=== PATIENT | male | born 1930 | race Caucasian/White ===

== ENCOUNTER 2016-12-24 22:40 | Emergency (ER) | payer OTHER, MEDICARE ==
[~2016-12-24 22:40] MED LIST: AMARYL 2 MG2 MG PO; ASPIR 8181 MG PO; CO-Q-10 100 MG-1 SGL PO; FUROSEMIDE40 MG PO; LEVEMIR FL300 UNITS/ SC; LISINOPRIL40 MG PO; NOVOLOG 10300 UNITS/ SC; OSTEO BI-FLEX 21 TAB PO; SIMVASTATIN40 MG PO; TYLENOL #31 TAB PO; VITAB121000 PO; VITAMIN D1000 IU PO
[2016-12-24 23:06] LABS: ABSOLUTE BASOPHIL COUNT 0.1 /CUMM (0.0-0.2); ABSOLUTE EOSINOPHIL COUNT 0.2 /CUMM (0.0-0.7); ABSOLUTE GRANULOCYTE CT 6.2 /CUMM (1.4-6.5); ABSOLUTE LYMPH COUNT 2.5 /CUMM (1.2-3.4); BASOPHIL % 0.5 % (0.0-2.0); EOSINOPHIL % 2.2 % (0-5); GRANULOCYTE % 62.5 % (42.2-75.2); MEAN CORPUSCULAR HGB 32.1 PG (27.0-31.0); MEAN CORPUSCULAR HGB CONC 33.3 G/DL (33.0-37.0); MEAN CORPUSCULAR VOLUME 96.3 FL (80.0-94.0); PLATELET COUNT 221 /CUMM (130-400); RBC DISTRIBUTION WIDTH 13.2 % (11.5-14.5); RED BLOOD CELL CT 4.15 /CUMM (4.70-6.10); WHITE BLOOD CELL COUNT 9.9 /CUMM (4.8-10.8)
--- NOTE | 2016-12-24 23:35 | ED GENERAL ADULT ---
History of Present Illness General Chief Complaint: General Adult Stated Complaint: RESTLESS Source: patient, family Exam Limitations: no limitations Vital Signs & Intake/Output Vital Signs & Intake/Output Vital Signs Date Time Temp Pulse Resp B/P Pulse O2 O2 Flow FiO2 Ox Delivery Rate 12/25 0351 97.7 78 20 130/66 96 12/24 2246 98.4 75 20 155/84 97 ED Intake and Output 12/25 0000 12/24 1200 Intake Total Output Total Balance Patient 190 lb Weight Reconcile Medications Aspirin (Ecotrin) 81 MG TABLET.DR 1 TAB PO DAILY HEART HEALTH (Reported) Cholecalciferol (Vitamin D3) (Unknown Strength) TABLET (Unknown Dose) PO DAILY VITAMIN D SUPPLEMET (Reported) Chondroitin Sulfate/Glucosam (Osteo Bi-Flex 200 MG-250 MG) (Unknown Strength) TAB (Unknown Dose) PO DAILY SUPPLEMENT (Reported) Coenzyme Q10/Vitamin E (Co-Q-10 100 MG-1 Iu) (Unknown Strength) SGL (Unknown Dose) PO DAILY SUPPLEMENT (Reported) Cyanocobalamin (Vitamin B-12) (Unknown Strength) TABLET (Unknown Dose) PO DAILY SUPPLEMENT (Reported) Fluticasone Propionate 50 MCG/ACTUATION SPRAY.SUSP 2 SPRAY NASB DAILY CONGESTION (Reported) Furosemide 40 MG TABLET 1 TAB PO EOD DIURETIC (Reported) Furosemide 40 MG TABLET 1 TAB PO DAILY FLUID (Reported) Glimepiride (Amaryl 2 MG) 2 MG TABLET 1 TAB PO DAILY DIABETES (Reported) Insulin Aspart, Recombinant (Novolog Flexpen) 100 UNIT/ML INSULN.PEN DIABETES ( Reported) Insulin Detemir (Levemir Flexpen) 100 UNIT/ML (3 ML) INSULN.PEN 42 U SC DAILY DIABETES (Reported) Insulin Detemir (Levemir Flextouch) 100 UNIT/ML (3 ML) INSULN.PEN 1 UNIT SC DAILY DM (Reported) Lisinopril 40 MG TABLET 1 TAB PO DAILY BP (Reported) Lisinopril 40 MG TABLET 1 TAB PO DAILY HTN (Reported) Lorazepam (Ativan) 0.5 MG TABLET 1 TAB PO BIDP PRN restlessness Omeprazole 40 MG CAPSULE.DR 1 CAP PO DAILY GERD (Reported) Simvastatin 40 MG TABLET 1 TAB PO QPM CHOLESTEROL (Reported) Simvastatin (Simvastatin*) 40 MG TABLET 1 TAB PO QPM CHOL (Reported) Tylenol With Codeine (Tylenol With Codeine #3 Tablet) 1 EACH TABLET 1 TAB PO BID PRN PAIN Triage Note: per daughter, restless can't sit still denies pain pt unable to state what is wrong. SAW PMD GIVEN FLONASE AND PRILOSEC 12/[address] SALMON Triage Nurses Notes Reviewed? yes HPI: THIS PATIENT is an 86-year-old male with past medical history including CHF, hypertension, and diabetes who presented to the emergency department today brought in by his daughter for evaluation of "being restless." This patient does not speak Russian as his primary language, so his daughter translated. She reported that over the last 2 weeks he has not been feeling well. She reported that he has been very restless and has to get up and move from room to room throughout the day. She reported that he was seen by his primary care physician recently because he felt like he was, "swallowing a lot." He has had a cold and they diagnosed him with postnasal drip. She was started on Prilosec and Flonase. The patient reported that he has had a cough productive of sputum. When he coughs he feels pain in his chest. The patient has not had any fevers or chills. The patient's daughter reported that he has been having some, "pulsing," in his rectum. She reported that he has not been having regular bowel movements as he normally does. No abdominal pain. No difficulty breathing. No vomiting. No nausea or diarrhea. (LINDA DAWSON PA-C) Allergies Coded Allergies: NO KNOWN ALLERGIES (12/25/16) (WILL HARO,ORESTES Galvan) Past History Travel History Traveled to [place] past 21 day No Medical History Any Pertinent Medical History? see below for history Neurological: NONE EENT: NONE Cardiovascular: CHF, hypertension Respiratory: obstructive sleep apnea Gastrointestinal: NONE Hepatic: NONE Renal: NONE Musculoskeletal: NONE Psychiatric: NONE Endocrine: DM Surgical History Surgical History: non-contributory Psychosocial History Who do you live with Family Services at Home None What is your primary language Citizen Of [place] Tobacco Use: Never used Family History Hx Contributory? No (LINDA DAWSON PA-C) Review of Systems Review of Systems Constitutional: Reports: see HPI. EENTM: Reports: no symptoms. Respiratory: Reports: no symptoms. Cardiovascular: Reports: see HPI. GI: Reports: no symptoms. Genitourinary: Reports: no symptoms. Musculoskeletal: Reports: no symptoms. Skin: Reports: no symptoms. Neurological/Psychological: Reports: no symptoms. All Other Systems: Reviewed and Negative (SAMIR MADISON,LINDA) Physical Exam Physical Exam General Appearance: well developed/nourished, no apparent distress, alert, awake Comments: Well-developed well-nourished person in no acute distress HEENT: Normal EENT exam head normocephalic/atraumatic, moist mucous membranes Pupils equally round and reactive to light. Pharynx normal. No swelling or edema. Neck: Supple Back: Normal inspection Cardiovascular: Regular rate and rhythm with no murmurs, rubs, or gallops. No JVD or carotid bruits appreciated Respiratory: Chest nontender. No respiratory distress. Breath sounds clear to auscultation bilaterally with no wheezes, rales, rhonchi Abdomen: Soft, nontender and nondistended Extremity: 2+ pitting edema to bilateral lower extremities with no overlying erythema, no weeping, and nontender to palpation. No calf tenderness. Edema greater on the right than the left. Normal and equal pulses. Neuro: Alert oriented x3, cranial nerves II through XII grossly intact. Skin: No appreciable rash on exposed skin, skin is warm and dry. Psych: Mood and affect is normal Core Measures ACS in differential dx? Yes CVA/TIA Diagnosis: No Severe Sepsis Present: No Septic Shock Present: No (LINDA DAWSON PA-C) Progress Differential Diagnoses I considered the following diagnoses in my evaluation of the patient: [Viral syndrome, pneumonia, PE, ACS, CHF, constipation, obstruction] Plan of Care: Orders Procedure Date/time Status TROPONIN LEVEL 12/25 254 Complete EKG 12/25 254 Active Add-on Test (ER Only) 12/24 2342 Active B-TYPE NATRIURETIC PEP (BNP) 12/24 225 Complete TROPONIN LEVEL 12/24 2246 Complete LIPASE 12/24 2246 Complete COMPREHENSIVE METABOLIC PANEL 12/24 2246 Complete CBC WITHOUT DIFFERENTIAL 12/24 2246 Complete AMYLASE 12/24 2246 Complete ACETONE 12/24 2246 Complete EKG 12/24 2246 Active Laboratory Tests 12/25/16 0251: Troponin I 0.02 12/24/16 2254: Anion Gap 9, Estimated GFR 57 L, BUN/Creatinine Ratio 18.3, Glucose 137 H, Calcium 9.3, Total Bilirubin 0.5, AST 22, ALT 30, Alkaline Phosphatase 60, Troponin I 0.02, [id number] Pept 491 H, Total Protein 6.3, Albumin 3.5, Globulin 2.8, Albumin/Globulin Ratio 1.3, Amylase 33, Lipase 122, CBC w Diff NO MAN DIFF REQ, RBC 4.15 L, MCV 96.3 H, MCH 32.1 H, RDW 13.2, MPV 7.0 L, Gran % 62.5, Lymphocytes % 25.0, Monocytes % 9.8 H, Eosinophils % 2.2, Basophils % 0.5, Absolute Granulocytes 6.2, Absolute Lymphocytes 2.5, Absolute Monocytes 1.0 H, Absolute Eosinophils 0.2, Absolute Basophils 0.1, PUBS MCHC 33.3, Acetone Level NEGATIVE Initial ED EKG: normal axis, normal intervals, normal p-waves, normal QRS complex, normal sinus rhythm, no ST T wave changes, 74 BPM Hand-Off Endorsed To: WILL HARO,ORESTES Galvan Endorsed Time: 47 Pending: labs, Xray Comments: 12/25/2016 12:46:47 AM: I was at the patient's bedside for reevaluation. The patient is requesting something to help him calm down. Awaiting x-ray of the abdomen and chest. This patient will receive a second troponin level and repeat EKG at approximately 3:00 this morning. (SAMIR MADISON,LINDA) Diagnostic Imaging: Viewed by Me: Radiology Read. Discussed w/RAD: Radiology Read. CXR Impression: PATIENT: ROLLY JOSE PRESENT AGE: 86 PATIENT ACCOUNT NO: [id number] : [birth year] LOCATION: [facility] ORDERING PHYSICIAN: LINDA DAWSON PA-C SERVICE DATE: 12/24/168086 EXAM TYPE: RAD - XRY-ABDOMEN -MULTIPLE VIEWS; XRY-CHEST XRAY, PA AND LATERAL EXAMINATION: PA and lateral chest radiograph and AP supine views of the abdomen CLINICAL INDICATION: Cough, malaise, and pulsing in the rectum COMPARISON: Chest x-ray October 10, 2016 FINDINGS: Chest: Central vascular congestion. Airspace opacities at the lung bases that may reflect atelectasis, pneumonia, or aspiration. Possible trace left pleural effusion. Central vascular congestion without overt edema. Asymmetric prominence of the right hilum is stable over multiple previous studies. There is no pneumothorax. Cardiac silhouette is enlarged and stable. There are no acute osseous findings. Abdomen: There is a nonobstructive bowel gas pattern. Moderate volume intracolonic stool with air seen to the level of the rectum. Calcifications within the pelvis most likely reflect phleboliths. Surgical clips within the right mid abdomen. There are no acute osseous findings. Osseous bridging across the upper aspect of the pubic symphysis. Leftward convex scoliotic curvature of the lumbar spine associated with degenerative disc disease and facet arthropathy. No definite free air on these supine films. IMPRESSION: - Bibasilar airspace opacities that may reflect atelectasis, pneumonia, or aspiration. Possible trace left pleural effusion. Central vascular congestion without overt edema. - No bowel obstruction. Moderate volume intracolonic stool. DICTATED BY: TYSON BARNARD MD DATE/TIME DICTATED:12/25/1649 SHAKER FLATWORK:ELBA DATE/TIME TRANSCRIBED:49 CONFIDENTIAL, DO NOT COPY WITHOUT APPROPRIATE AUTHORIZATION. < Electronically signed in Other Vendor System> SIGNED BY: TYSON BARNARD MD 12/25/1656 Prior EKG: unchanged Repeat EKG: unchanged Comments: No clinical signs of pneumonia. (WILL HARO,ORESTES Galvan) Departure Departure Disposition: HOME OR SELF CARE Condition: Stable Clinical Impression Primary Impression: Restlessness Referrals: VIKY HARO,JAI Gonzalez (PCP/Family) Additional Instructions: Please follow-up with your primary care physician as discussed. Return to the emergency department for any worsening symptoms or concerns. Departure Forms: Customer Survey General Discharge Information (SAMIR MADISON,LINDA) Departure Prescriptions: Current Visit Scripts Lorazepam (Ativan) 1 TAB PO BIDP PRN restlessness #30 TAB PA/TOP KNITTER Co-Sign Statement Statement: ED Attending supervision documentation- [x] I saw and evaluated the patient. I have also reviewed all the pertinent lab results and diagnostic results. I agree with the findings and the plan of care as documented in the PA's/TOP KNITTER's documentation. [x] I have reviewed the ED Record and agree with the PA's/TOP KNITTER's documentation. [] Additions or exceptions (if any) to the PAs/TOP KNITTER's note and plan are summarized below: [] (WILL HAROORESTES) Critical Care Note Critical Care Note Critical Care Time: non-applicable (SAMIR MADISON,LINDA)
--- NOTE | 2016-12-25 00:57 | RADIOLOGY REPORT ---
EXAMINATION: PA and lateral chest radiograph and AP supine views of the abdomen CLINICAL INDICATION: Cough, malaise, and pulsing in the rectum COMPARISON: Chest x-ray October 10, 2016 FINDINGS: Chest: Central vascular congestion. Airspace opacities at the lung bases that may reflect atelectasis, pneumonia, or aspiration. Possible trace left pleural effusion. Central vascular congestion without overt edema. Asymmetric prominence of the right hilum is stable over multiple previous studies. There is no pneumothorax. Cardiac silhouette is enlarged and stable. There are no acute osseous findings. Abdomen: There is a nonobstructive bowel gas pattern. Moderate volume intracolonic stool with air seen to the level of the rectum. Calcifications within the pelvis most likely reflect phleboliths. Surgical clips within the right mid abdomen. There are no acute osseous findings. Osseous bridging across the upper aspect of the pubic symphysis. Leftward convex scoliotic curvature of the lumbar spine associated with degenerative disc disease and facet arthropathy. No definite free air on these supine films. IMPRESSION: - Bibasilar airspace opacities that may reflect atelectasis, pneumonia, or aspiration. Possible trace left pleural effusion. Central vascular congestion without overt edema. - No bowel obstruction. Moderate volume intracolonic stool.
[2016-12-25] MEDS ORDERED: FLUTICASONE PRO16 GM NASB (03:47)
[2016-12-25] MEDS ORDERED: OMEPRAZOLE40 M1 PO (03:47)
[2016-12-25] MEDS ORDERED: LISINOPRIL40 M1 PO (03:48)
[2016-12-25] MEDS ORDERED: SIMVASTATIN40 M1 PO (03:48)
[2016-12-25] MEDS ORDERED: LEVEMIR FL100 UNIT/1 SC (03:48)
[2016-12-25] MEDS ORDERED: FUROSEMIDE40 M1 PO (03:48)
[2016-12-25 03:51] VITALS: BP 130/66
[2016-12-25] MEDS ORDERED: ATIVAN0.5 M1 PO (03:51)
== END 2016-12-25 03:59 ==
LOC: ERH 22:40
PROVIDERS: Emergency Medicine
DX: R45.1 Restlessness and agitation (principal); R05 Cough; R07.9 Chest pain, unspecified; I11.0 Hypertensive heart disease with heart failure; I50.9 Heart failure, unspecified; G47.33 Obstructive sleep apnea (adult) (pediatric)
CPT/HCPCS: 74020; 93005; 93010

== ENCOUNTER 2017-11-17 13:44 | Observation (INO) | payer OTHER, MEDICARE ==
[~2017-11-17] VITALS: Ht 157.5 cm; Wt 81.6 kg
[~2017-11-17 13:44] MED LIST changes: -AMARYL 2 MG2 MG PO; +AMARYL2 M1 PO; -ASPIR 8181 MG PO; +ASPIRIN EC81 M1 PO; +ATIVAN0.5 M1 PO; +CO Q-10100 MG PO; -CO-Q-10 100 MG-1 SGL PO; +FLUTICASONE PRO16 GM NASB; +FUROSEMIDE40 M1 PO; +KEFLEX500 M1 PO; +LEVEMIR FL100 UNIT/1 SC; +LISINOPRIL40 M1 PO; -NOVOLOG 10300 UNITS/ SC; +NOVOLOG FL100 UNIT/1 SC; +OMEPRAZOLE40 M1 PO; -OSTEO BI-FLEX 21 TAB PO; +OSTEO BI-FLEX1 EACH PO; +SIMVASTATIN40 M1 PO; -VITAB121000 PO; +VITAMIN B-121000 MC3 PO; -VITAMIN D1000 IU PO; +VITAMIN D31000 UNI2 PO
[2017-11-17 14:44] LABS: ABSOLUTE BASOPHIL COUNT 0 /CUMM (0.0-0.2); ABSOLUTE EOSINOPHIL COUNT 0.3 /CUMM (0.0-0.7); ABSOLUTE GRANULOCYTE CT 6.9 /CUMM (1.4-6.5); ABSOLUTE LYMPH COUNT 2.1 /CUMM (1.2-3.4); ABSOLUTE MONOCYTE COUNT 1.1 /CUMM (0.10-0.60); BASOPHIL % 0.4 % (0.0-2.0); EOSINOPHIL % 2.5 % (0-5); GRANULOCYTE % 65.9 % (42.2-75.2); MEAN CORPUSCULAR HGB 32.4 PG (27.0-31.0); MEAN CORPUSCULAR HGB CONC 34.3 G/DL (33.0-37.0); MEAN CORPUSCULAR VOLUME 94.5 FL (80.0-94.0); MEAN PLATELET VOLUME 7.7 FL (7.4-10.4); PLATELET COUNT 236 /CUMM (130-400); RBC DISTRIBUTION WIDTH 14.1 % (11.5-14.5); RED BLOOD CELL CT 3.81 /CUMM (4.70-6.10); WHITE BLOOD CELL COUNT 10.4 /CUMM (4.8-10.8)
--- NOTE | 2017-11-17 15:01 | ED SYNCOPE COMPLAINT ---
History of Present Illness General Chief Complaint: Syncope and Near-Syncope Stated Complaint: SYNCOPE Source: patient, family (DAUGHTER ) Exam Limitations: language barrier (DAUGHTER TRANMSLATES ) Vital Signs & Intake/Output Vital Signs & Intake/Output Vital Signs Date Time Temp Pulse Resp B/P B/P Pulse O2 O2 Flow FiO2 Mean Ox Delivery Rate 11/17 1639 96.7 80 18 130/63 98 Room Air 11/17 1500 98 Room Air 11/17 1420 98.6 69 18 116/74 99 Room Air Allergies Coded Allergies: NO KNOWN ALLERGIES (12/25/16) Reconcile Medications Aspirin (Ecotrin*) 81 MG TABLET.DR 1 TAB PO DAILY HEART HEALTH (Reported) Cephalexin (Keflex) 500 MG CAPSULE 1 CAP PO TID cellulitis Cholecalciferol (Vitamin D3) 1,000 UNIT TABLET 1 TAB PO DAILY VITAMIN SUPPORT (Reported) Cyanocobalamin (Vitamin B-12) 1,000 MCG TABLET 1 TAB PO DAILY VITAMIN SUPPORT (Reported) Fluticasone Propionate 50 MCG/ACTUATION SPRAY.SUSP 2 SPRAY NASB DAILY CONGESTION (Reported) Furosemide 40 MG TABLET 1 TAB PO DAILY FLUID (Reported) Glimepiride (Amaryl) 2 MG TABLET 1 TAB PO DAILY DIABETES (Reported) Glucosamine HCl/Chondr Hartman A Na (Osteo Bi-Flex Caplet) 250 MG-200 MG TABLET 1 TAB PO DAILY SUPPLEMENT (Reported) Insulin Aspart, Recombinant (Novolog Flexpen) (Unknown Strength) INSULN.PEN ( Unknown Dose) SC DAILY PRN DM (Reported) Insulin Detemir (Levemir Flextouch) 100 UNIT/ML (3 ML) INSULN.PEN DM (Reported) Lisinopril 40 MG TABLET 1 TAB PO DAILY HTN (Reported) Lorazepam (Ativan) 0.5 MG TABLET 1 TAB PO BIDP PRN restlessness Omeprazole 40 MG CAPSULE.DR 1 CAP PO DAILY GERD (Reported) Simvastatin (Simvastatin*) 40 MG TABLET 1 TAB PO QPM CHOL (Reported) Ubidecarenone (Co Q-10) 100 MG CAPSULE 1 CAP PO DAILY SUPPLEMENT (Reported) Triage Note: PT TO ED FOR THREE NEAR SYNCOPAL EPISODES AT HOME, PT STATING HE STOOD UP TO REACH FOR SOMETHING OFF A SHELF AND BECAME DIZZY AND LOWERED HIMSELF TO A CHAIR, SYMPTOMS RESOLVED ON ARRIVAL TO ED, DENIES CP, SOB, ESCOBEDO. Triage Nurses Notes Reviewed? yes Timing: multiple episodes today Precipitating Factors: lightheadedness Context: turning/bending Episode Description: Was moving in the kitchen some he felt dizzy and lightheaded did not completely LOSE CONCIOUSNESS Loss of Consciousness: no loss of consciousness Associated Symptoms: dizziness, weakness HPI: 87-year-old male past medical history of atrial fibrillation, CHF, , coronary artery disease, myocardial infarction 3 weeks ago presents for evaluation of 3 presyncopal episodes. Daughter reports that patient was in his kitchen earlier today he was moving to get something out of a cabinet when he suddenly felt very dizzy lightheaded and became "wobbly" On his feet. His aide was able to sit him down into a chair and his symptoms improved. A similar occurred on 2 additional occasions. He never completely lost consciousness. He states he remembers the entire event. He had no chest pain or shortness of breath during the event. Currently he is feeling well when he is just sitting still however when he stands up he becomes dizzy lightheaded and unbalanced. Patient was recently transferred out of the emergency department for A ST elevation MT 3 weeks ago. He takes 20 mg of Lasix daily. He is also on Eliquis for atrial fibrillation. He has a history of aortic stenosis and currently is in process of scheduling valve replacement surgery. Mental status is at baseline according to daughter who is at bedside. (Armani Riddle) Past History Travel History Traveled to [place] past 21 day No Medical History Any Pertinent Medical History? see below for history Neurological: NONE EENT: NONE Cardiovascular: AFIB, CHF, hypertension, STEMI Respiratory: obstructive sleep apnea Gastrointestinal: NONE Hepatic: NONE Renal: NONE Musculoskeletal: NONE Psychiatric: NONE Endocrine: DM Blood Disorders: NONE Cancer(s): NONE CREDIT FRONT OFFICE DEVELOPER/Reproductive: NONE Surgical History Surgical History: non-contributory Psychosocial History Who do you live with Family Services at Home None What is your primary language Malay Tobacco Use: Never used ETOH Use: denies use Illicit Drug Use: denies illicit drug use Family History Hx Contributory? No (Armani Riddle) Review of Systems Review of Systems Constitutional: Reports: no symptoms. EENTM: Reports: no symptoms. Respiratory: Reports: no symptoms. Cardiovascular: Reports: peripheral edema, syncope. GI: Reports: no symptoms. Genitourinary: Reports: no symptoms. Musculoskeletal: Reports: no symptoms. Skin: Reports: no symptoms. Neurological/Psychological: Reports: no symptoms. All Other Systems: Reviewed and Negative (Armani Riddle) Physical Exam Physical Exam General Appearance: well developed/nourished, no apparent distress, alert, awake Head: atraumatic, normal appearance Eyes: Bilateral: normal appearance, PERRL, EOMI. Ears, Nose, Throat: normal pharynx, normal ENT inspection, hearing grossly normal Neck: normal inspection, supple, full range of motion Respiratory: chest non-tender, no respiratory distress, crackles (BILATERALY ) Cardiovascular: normal peripheral pulses, systolic murmur Gastrointestinal: normal bowel sounds, soft, non-tender, no organomegaly Back: normal inspection, normal range of motion, NO CVAT Extremities: normal inspection, normal range of motion, THERE IS 1+ PITTING EDEMA IN THE BILATERAL LOWER EXTREMITIES VENOUS STASIS DERMATITIS PRESENT BILATERALLY Psychiatric: awake, alert, oriented x 3 Cranial Nerves: normal hearing, normal speech, PERRL Coordination/Gait: normal finger to nose Motor/Sensory: no motor/sensory deficits Skin: intact, normal color, warm/dry Core Measures ACS in differential dx? Yes No ASA d/t ruled out CVA/TIA Diagnosis: No Sepsis Present: No Sepsis Focused Exam Completed? No (Armani Riddle) Progress Differential Diagnosis: AMI, aortic dissection, aortic valve, orthostatic syncope, other valvular disease, vasodepressor syncope, ventricular tach/fib, ARRHYTHMIA, DEHYDRATION, ELECTROLYTE ABNORMALITY Plan of Care: Orders Procedure Date/time Status Heart Healthy Diet 11/18 B Active Add-on Test (ER Only) 11/17 1723 Active Patient Data 11/17 1706 Active OXYGEN SETUP (GEN) 11/17 1649 Active Saline Lock 11/[address] in observation 11/17 1649 Active Vital Signs 11/17 1649 Active Activity/Ambulation 11/17 1649 Active Code Status 11/17 1649 Active Add-on Test (ER Only) 11/17 1502 Active PARTIAL THROMBOPLASTIN TIME 11/17 1430 Complete PROTHROMBIN TIME 11/17 1430 Complete MAGNESIUM 11/17 1430 Active DIGOXIN 11/17 1430 Active B-TYPE NATRIURETIC PEP (BNP) 11/17 1430 Active MISTAKE 11/17 1424 Active Telemetry/Hoeing Row Boss 11/17 1424 Active TROPONIN LEVEL 11/17 1422 Active COMPREHENSIVE METABOLIC PANEL 11/17 1422 Active CBC WITHOUT DIFFERENTIAL 11/17 1422 Complete EKG 11/17 1409 Active Laboratory Tests 11/17/17 1430: Anion Gap 12, Estimated GFR 57 L, BUN/Creatinine Ratio 19.2, Glucose 218 H, Calcium 8.9, Magnesium 1.9, Total Bilirubin 0.7, AST 22, ALT 41, Alkaline Phosphatase 78, Troponin I 0.04, [id number] Pept 2830 H, Total Protein 6.3, Albumin 3.5, Globulin 2.8, Albumin/Globulin Ratio 1.3, PT 14.8 H, INR 1.41 H, APTT 32, CBC w Diff NO MAN DIFF REQ, RBC 3.81 L, MCV 94.5 H, MCH 32.4 H, RDW 14.1, MPV 7.7, Gran % 65.9, Lymphocytes % 20.6, Monocytes % 10.6 H, Eosinophils % 2.5, Basophils % 0.4, Absolute Granulocytes 6.9 H, Absolute Lymphocytes 2.1, Absolute Monocytes 1.1 H, Absolute Eosinophils 0.3, Absolute Basophils 0, PUBS MCHC 34.3, Digoxin Pending Patient seen and evaluated. He had 3 syncopal episodes today while he was moving on his kitchen. He never actually lost consciousness fell hit his head. There is no chest pain or shortness of breath. Patient has a significant cardiac history including aortic stenosis CHF coronary artery disease and atrial fibrillation. He has a loud holosystolic murmur over the aortic area. He is in the process of scheduling aortic valve replacement. It is possible that worsening of his aortic stenosis could be contributing to his symptoms. Additionally patient may be going into rapid A. fib. Patient also has 1+ pitting edema bilaterally crackles over the chest and some pulmonary edema on chest x-ray. Patient's blood pressure diastolic blood pressure dropped 13 points going from laying to sitting this is positive for orthostatic hypotension. Patient's fluid level will need to be carefully evaluated. Adding to much fluid may put him in the CHF while not having enough fluid may affect his aortic stenosis. Sending patient home could result in a syncopal episode that may result in a fall with head trauma. Spoke with Dr. Mendoza data processing control clerk pineapple plantation manager who supports the idea of bringing the patient in for observation. Patient will require telemetry monitoring, serial EKGs, serial troponins, cardiology consult, echocardiogram and monitoring of vital signs. He is discussed with Dr. Mac he agrees. Diagnostic Imaging: Viewed by Me: Radiology Read. Discussed w/RAD: Radiology Read. CXR Impression: PATIENT: ROLLY JOSE PRESENT AGE: 87 PATIENT ACCOUNT NO: [id number] : [birth year] LOCATION: [facility] ORDERING PHYSICIAN: Armani SPENCE SERVICE DATE: 11/17/17 EXAM TYPE: RAD - XRY-PORTABLE CHEST XRAY EXAMINATION: CHEST 1 VIEW CLINICAL INFORMATION: Syncope. Dizziness. COMPARISON: 10/25/2017. TECHNIQUE: An AP view of the chest is provided. FINDINGS : The cardiac silhouette is enlarged, though stable. There is mild interstitial prominence, not significantly changed from prior exam. There is bibasilar airspace disease. The osseous structures are stable. IMPRESSION: Stable cardiomegaly with stable mild interstitial prominence present throughout both lungs likely indicative of mild vascular congestion. Mild nonspecific bibasilar airspace disease. DICTATED BY: Jerry Jane MD DATE/TIME DICTATED:11/17/171534 PROSTHETIST:ELBA DATE/TIME TRANSCRIBED:11/17/171534 CONFIDENTIAL, DO NOT COPY WITHOUT APPROPRIATE AUTHORIZATION. Initial ED EKG: ATRIAL FIBRILLATION WITH VENTRICULAR RATE OF 81 , NONSPECIFIC REPOLARIZATION OUT OF MALADIES DIFFUSELY (Armani Riddle) Departure Departure Disposition: STILL A PATIENT Condition: Stable Clinical Impression Primary Impression: Pre-syncope Referrals: Alyssia Gutiérrez MD (PCP/Family) Departure Forms: Customer Survey General Discharge Information Observation Note Spoke With: Jerry Forrest MD Physician Advisor Notified: DIMA HARO,SUSANA Galvan Place Patient In: Non-ED OBS Care Area Rationale for Observation: My rational for observation is as follows [patient has multiple cardiac issues including CHF coronary artery disease with MT 3 weeks ago, aortic stenosis and atrial fibrillation. He had 3 presyncopal episodes today. He has some pulmonary edema on chest x-ray and a loud aortic stenosis murmur. Patient will be discharged home and have a syncopal episode he could fall and hit his head causing a significant intracranial hemorrhage or other traumatic injury. He'll be admitted For observation for telemetry monitoring, cardiology consult, echocardiogram, serial labs, serial EKGs, gentle hydration]. (Armani Riddle) PA/STRANDING MACHINE OPERATOR Co-Sign Statement Statement: ED Attending supervision documentation- x I saw and evaluated the patient. I have also reviewed all the pertinent lab results and diagnostic results. I agree with the findings and the plan of care as documented in the PA's/STRANDING MACHINE OPERATOR's documentation. Near syncope with CHF, hx relative hypotension requiring gentle diuresis mediation adjustment [] I have reviewed the ED Record and agree with the PA's/STRANDING MACHINE OPERATOR's documentation. [] Additions or exceptions (if any) to the PAs/STRANDING MACHINE OPERATOR's note and plan are summarized below: [] (Bubba HARO,Ibrahima)
[2017-11-17 15:31] LABS: PT 14.8 SEC (9.4-12.5); PTT 32 SEC (25-37)
--- NOTE | 2017-11-17 15:39 | RADIOLOGY REPORT ---
EXAMINATION: CHEST 1 VIEW CLINICAL INFORMATION: Syncope. Dizziness. COMPARISON: 10/25/2017. TECHNIQUE: An AP view of the chest is provided. FINDINGS: The cardiac silhouette is enlarged, though stable. There is mild interstitial prominence, not significantly changed from prior exam. There is bibasilar airspace disease. The osseous structures are stable. IMPRESSION: Stable cardiomegaly with stable mild interstitial prominence present throughout both lungs likely indicative of mild vascular congestion. Mild nonspecific bibasilar airspace disease.
--- NOTE | 2017-11-17 17:05 | History & Physical ---
Christelle HARO,[facility] 11/17/17 2187: General Information and HPI MD Statement: I have seen and personally examined ROLLY JOSE and documented this H&P. The patient is a 87 year old M who presented with a patient stated chief complaint of [dizziness]. Source of Information: patient Exam Limitations: no limitations History of Present Illness: 87-year-old male with past medical history of atrial fibrillation, congestive heart failure, aortic stenosis, coronary artery disease, myocardial infarction [ 3 weeks ago was admitted [facility] for 11 days and underwent cardiac cath], obstructive sleep apnea on BIPAP, obesity came to [place] ER with 3 episodes of dizziness since morning. Apparently patient was in his usual state of health until today morning, following which he had a brief episode of dizziness with no loss of consciousness/fall not associated with chest pain, shortness of breath, blackout , chest pressure. He denies abdominal pain, nausea, vomiting, fever, chills, weakness, seizures, recent change in medication, oliguria, pedal edema, hematuria, bloody bowel movement, decreased by mouth intake, headache, recent fall. The dizziness lasted for a few seconds and relieved by taking rest. Patient was recently admitted [facility] on September 2017 for myocardial infarction and underwent cath. Patient has been following Dr. Stauffer since then. Allergies/Medications Allergies: Coded Allergies: NO KNOWN ALLERGIES (12/25/16) Home Med list Apixaban (Eliquis) 5 MG TABLET 1 TAB PO BID BLOOD THINNER (FOR A FIB) ( Reported) Aspirin (Ecotrin*) 81 MG TABLET.DR 1 TAB PO DAILY HEART HEALTH (Reported) Atorvastatin Calcium 80 MG TABLET 1 TAB PO DAILY HEART HEALTH, HLD (Reported) Cephalexin (Keflex) 500 MG CAPSULE 1 CAP PO TID cellulitis Cholecalciferol (Vitamin D3) 1,000 UNIT TABLET 1 TAB PO DAILY VITAMIN SUPPORT (Reported) Cyanocobalamin (Vitamin B-12) 1,000 MCG TABLET 1 TAB PO DAILY VITAMIN SUPPORT (Reported) Digoxin 125 MCG TABLET 1 TAB PO 1700 HEART (Reported) Diltiazem HCl (Diltiazem 24HR ER) 360 MG CAP.ER.24H 1 CAP PO DAILY HEART RHYTHM (Reported) Fluticasone Propionate 50 MCG/ACTUATION SPRAY.SUSP 2 SPRAY NASB DAILY CONGESTION (Reported) Furosemide 20 MG TABLET 1 TAB PO DAILY HEART, EDEMA (Reported) Glimepiride (Amaryl) 2 MG TABLET 1 TAB PO DAILY DIABETES (Reported) Glucosamine HCl/Chondr Hartman A Na (Osteo Bi-Flex Caplet) 250 MG-200 MG TABLET 1 TAB PO DAILY SUPPLEMENT (Reported) Insulin Aspart, Recombinant (Novolog Flexpen) (Unknown Strength) INSULN.PEN ( Unknown Dose) SC DAILY PRN DM (Reported) Insulin Detemir (Levemir) 100 UNIT/ML VIAL 7 U SC QPM DIABETES (Reported) Insulin Detemir (Levemir Flextouch) 100 UNIT/ML (3 ML) INSULN.PEN DM (Reported) Metoprolol Tartrate 100 MG TABLET 1 TAB PO BID HEART (Reported) Omeprazole 40 MG CAPSULE.DR 1 CAP PO DAILY GERD (Reported) Ubidecarenone (Co Q-10) 100 MG CAPSULE 1 CAP PO DAILY SUPPLEMENT (Reported) Compliance With Home Meds: GOOD Past History Travel History Traveled to [place] past 21 day No Medical History Neurological: NONE EENT: NONE Cardiovascular: AFIB, CHF, hypertension, STEMI Respiratory: obstructive sleep apnea Gastrointestinal: NONE Hepatic: NONE Renal: NONE Musculoskeletal: NONE Psychiatric: NONE Endocrine: DM Blood Disorders: NONE Cancer(s): NONE CORE STICKER/Reproductive: NONE Surgical History Surgical History: non-contributory Past Family/Social History Psychosocial History Where do you live? Home Who Do You Live With? spouse Services at Home: None Primary Language: Palestinian Smoking Status: Never Smoked ETOH Use: denies use Illicit Drug Use: denies illicit drug use Functional Ability ADLs Independent: dressing, eating, toileting, bathing. Ambulation: independent IADLs Independent: shopping, housework, finances, food prep, telephone, transportation , medication admin. Review of Systems Review of Systems Constitutional: Reports: no symptoms. Cardiovascular: Reports: no symptoms. Respiratory: Reports: no symptoms. GI: Reports: no symptoms. Genitourinary: Reports: no symptoms. Musculoskeletal: Reports: no symptoms. Skin: Reports: no symptoms. Exam & Diagnostic Data Last 24 Hrs of Vital Signs/I&O Vital Signs Date Time Temp Pulse Resp B/P B/P Pulse O2 O2 Flow FiO2 Mean Ox Delivery Rate 11/17 1639 96.7 80 18 130/63 98 Room Air 11/17 1500 98 Room Air 11/17 1420 98.6 69 18 116/74 99 Room Air Intake & Output 11/17 1600 11/17 0800 11/17 0000 Intake Total Output Total Balance Patient 180 lb Weight Weight Reported by Patient Measurement Method Physical Exam General Appearance Alert, Oriented X3, Cooperative, No Acute Distress Skin No Breakdown HEENT PERRLA Neck Supple, No JVD Cardiovascular Normal S2, No Murmurs, SYSTOLIC MURMUR. IR rEGULAR Lungs Clear to Auscultation Abdomen Soft, No Tenderness, No Hepatospenomegaly Neurological Normal Speech, Strength at 5/5 X4 Ext, Normal Tone, Sensation Intact Last 24 Hrs of Labs/Ash: Laboratory Tests 11/17/17 1430: Anion Gap 12, Estimated GFR 57 L, BUN/Creatinine Ratio 19.2, Glucose 218 H, Calcium 8.9, Magnesium 1.9, Total Bilirubin 0.7, AST 22, ALT 41, Alkaline Phosphatase 78, Troponin I 0.04, Owm-Q-Bbhjbmfoelm Pept 2830 H, Total Protein 6.3, Albumin 3.5, Globulin 2.8, Albumin/Globulin Ratio 1.3, PT 14.8 H, INR 1.41 H, APTT 32, CBC w Diff NO MAN DIFF REQ, RBC 3.81 L, MCV 94.5 H, MCH 32.4 H, RDW 14.1, MPV 7.7, Gran % 65.9, Lymphocytes % 20.6, Monocytes % 10.6 H, Eosinophils % 2.5, Basophils % 0.4, Absolute Granulocytes 6.9 H, Absolute Lymphocytes 2.1, Absolute Monocytes 1.1 H, Absolute Eosinophils 0.3, Absolute Basophils 0, PUBS MCHC 34.3, Digoxin 0.9 Diagnostic Data EKG Results atrial fibrillation,hr 80 CXR Results Stable cardiomegaly with stable mild interstitial prominence present throughout both lungs likely indicative of mild vascular congestion. Mild nonspecific bibasilar airspace disease Assessment/Plan Assessment: 87-year-old male with past medical history of atrial fibrillation, congestive heart failure, aortic stenosis, coronary artery disease, myocardial infarction [ 3 weeks ago was admitted [facility] for 11 days and underwent cardiac cath], obstructive sleep apnea on BIPAP, obesity came to [place] ER with 3 episodes of dizziness since morning is being observed in telemetry for further evaluation and management. Problem list 1.PREsyncope under evaluation 2.Atrial fibrillation 3.Congestive heart failure 4.Coronary artery disease 5.Diabetes/hypertension/hyperlipidemia 6.Obstructive sleep apnea on BIPAP Assessment and plan 1. PRESyncope FOR evaluation Given the patient extensive cardiac history his syncope can be cardiogenic secondary to aortic stenosis but we will rule out other causes i.e vasovagal/ neuro. Neuro check every 4. Orthostatics done in ED were negative. We will get a cardiology consult and do a echocardiogram if needed. Encourage oral intake. We will do daily CBCs and BEP to rule out any acute abnormalities. 2.Atrial fibrillation Patient is an atrial fibrillation rate controlled. He is on Cardizem and metoprolol. Given the history of syncope we will continue his Cardizem and hold his metoprolol for now. We will continue his Eliquis. 3. Congestive heart failure We'll continue his Lasix. 4. Diabetes, hypertension, hyperlipidemia We will start him on sliding scale NovoLog insulin, Accu-Chek, we will continue his atorvastatin, digoxin, omeprazole, Lasix 20 mg, aspirin. 5. Obstructive sleep apnea we will continue his CPAP. Diet-heart regular diet Code-full code As Ranked By This Provider Problem List: 1. Diabetes mellitus 2. Dyslipidemia Observation Initial Note - I have personally examined ROLLY JOSE on 11/17/17 at 1820. The disposition of ROLLY JOSE is uncertain at this time and before a determination can be made, he requires a period of observation for the following reasons [syncope] Core Measures/Misc (07/13) Acute Coronary Syndrome ACS Diagnosis: No Congestive Heart Failure Congestive Heart Failure Diagnosis No Cerebrovascular Accident CVA/TIA Diagnosis: No VTE (View Protocol) VTE Risk Factors Age>40 No Mechanical VTE Prophylaxis d/t Other No VTE Pharm Prophylaxis d/t Other Sepsis (View protocol) Sepsis Present: No Azam Gregg MD 11/17/17 1710: Resident Review Statement Resident Statement: examined this patient, discussed with digital media intern, agreed with digital media intern, reviewed EMR data (avail), discussed with nursing, discussed with case mgmt, reviewed images, amended to note Other Findings: 87 years old male with past medical history of severe aortic stenosis (echo not accessible currently), atrial fibrillation, congestive heart failure, nonocclusive coronary artery disease/myocardial infarction, obstructive sleep apnea on CPAP, obesity presented to the emergency department after having 3 episodes of near syncope earlier today. He was in his usual state of health until 3 weeks ago, when he was admitted for cardiac reasons [facility], underwent cardiac catheterization. After 11 days at the hospital, he was apparently began in his usual state of health until this morning. He had his first episode of near syncope this morning- he felt dizzy in the kitchen (was not eating), and "almost fell" but did not fall/hit his head anywhere/or lost consciousness. This lasted for less than a minute and happened 2 other times as well today, when the family brought him to the emergency department. He mentioned upon questioning that his vision was a little blurry just prior to the event first time. He denies any other symptoms before, during or after the episodes. Of note, he follows Dr. Cobb for cardiology and is being considered for TAVR. Labs: No leukocytosis, H&H 12.4/36.0, platelet 236, electrolytes normal, GFR 57, glucose 218, LFT normal, proBNP 2830, Image: CXR: stable cardiomegaly, mild vascular congestion, nonspecific bibasilar airspace disease. EKG: He is being observed in the telemetry floor for the following issues: # Pre-syncope The patient gives history that is consistent with presyncope, with no loss of consciousness, but 3 times and one single tic, thus warranted further evaluation. He has a history of atrial fibrillation, and is someone being considered for TAVR, making cardiac causes most likely. He doesn't appear to be decompensated in regards to CHF. Moreover, he does not have any focal neurologic deficit, and his vision has not changed from his baseline although he mentioned some visual disturbances upon questioning earlier. Thus making neurologic causes of presyncope/syncope less likely. We do not have any orthostatic vitals on him. * Will admit the patient in telemetry, and monitor heart rate and rhythm * Regular vitals check, regular NIH/neuro check * We will trend his troponin one more time, the first one was negative at 0.04, given his extensive cardiac history * Cardiology consultation has been requested * Will monitor I/O and IV fluid for the night (to be reassessed in the morning) * Will continue his cardiac meds for now that he has normal BP and heart rate, i.e. Metoprolol, Lasix, and Cardizem. #Uncontrolled, Diabetes mellitus Patient's blood sugar is not under control, and latest his fiance was above 7. * Diabetic diet * Regular Accu-Cheks 3 times a day/before meals and HS * Insulin SS, (oral meds on hold) #Will continue rest of his home medications. #Diet: Diabetes #DVT ppx: Apixaban #Code status: Full code Lon HAROJerry 11/17/17 2000: Attending MD Review Statement Attending Statement Attending MD Statement: examined this patient, discuss w/resident/PA/ACETYLENE GAS COMPRESSOR, agreed w/resident/PA/ACETYLENE GAS COMPRESSOR, discussed with family, reviewed EMR data (avail), reviewed images, amended to note Attending Assessment/Plan: The patient is an 87 yo male with h/o chronic afib (rate controlled- on Apixaban ), CHF, , CAD (s/p SC 3 weeks ago- in [facility] for 11 days- cath), SOFIYA (on CPAP), who presented in [place] ED with 3 episodes of "lightheadedness" that occurred today at home. He was with aide and did not pass out or fall. No c /o chest pain, palpitations, or dyspnea. No c/o abdominal pain, etc. Lightheadedness was brief and resolved post resting. He is followed by Dr. Manriquez as OP for cardiology. Was being considered for TAVR. Physical Exam: VS: T 98.6, P 69-80 (irreg), BP 118/74-130/63 (slightly orthostatic per PA), PO 98% RA HEENT: eyes- PERRLA, EOMI laron- sl dry mucosa Neck: no JVD or bruits Chest: minimal rales at bases bilat Cor: irreg rhythm, nl rate, nl S1, S2, + 2-3/6 sys murm @ LSB Abd: BS+, soft, NT Ext: 1+ edema bilat (less than usual per family) Neuro: alert & oriented (speaks Palestinian), non-focal exam, gait not tested Labs/Tests- as above. Impression/Plan: #Lightheadedness/Near Syncope- 3 episodes while ambulating at home today. No falls, syncope or injury. No chest pain or palpitations. Neuro exam non-focal. May be slightly orthostatic per PA in ED. Is on chronic Lasix and edema has decreased. May have autonomic neuropathy due to DM. Has not been hypoglycemic in past. Plan: Bring in as OBServation patient to telemetry floor. Monitor for episodes of tachycardia or bradycardia. Check orthostatics- continue usual meds. Check troponins. Cardiology consult- Dr. Hanks. PT consult in morning. #CAD/- S/P recent SC, CHF, afib, etc. Plan: Obtain records from [facility]. Cardiology evaluation Dr. Manriquez. Continue Apixaban, Digoxin, Diltiazem, Metoprolol, Furosemide. #DM2- on oral agents. Doubt hypoglycemia, however must consider. Plan: Follow blood sugars with glucoscan. Hold oral agents, continue insulin with sliding scale coverage. #Hyperlipidemia- on Atorvastatin. Plan: Continue Atorvastatin. #GERD- on Omeprazole. Plan: Continue Omeprazole.
[2017-11-17] MEDS ORDERED: FUROSEMIDE20 M1 PO (18:07)
[2017-11-17] MEDS ORDERED: METOPROLOL TAR100 M1 PO (18:10)
[2017-11-17] MEDS ORDERED: DILTIAZEM 24HR360 MG PO (18:11)
[2017-11-17] MEDS ORDERED: DIGOXIN125 MCG PO (18:11)
[2017-11-17] MEDS ORDERED: ELIQUIS5 M1 PO (18:12)
[2017-11-17] MEDS ORDERED: ATORVASTATIN CA80 M1 PO (18:12)
[2017-11-17] MEDS ORDERED: LEVEMIR100 UNIT/1 SC (18:17)
[2017-11-17 20:43] LABS: ABSOLUTE BASOPHIL COUNT 0 /CUMM (0.0-0.2); ABSOLUTE EOSINOPHIL COUNT 0.3 /CUMM (0.0-0.7); ABSOLUTE GRANULOCYTE CT 6.2 /CUMM (1.4-6.5); ABSOLUTE LYMPH COUNT 2.2 /CUMM (1.2-3.4); ABSOLUTE MONOCYTE COUNT 1.1 /CUMM (0.10-0.60); BASOPHIL % 0.3 % (0.0-2.0); EOSINOPHIL % 3.5 % (0-5); GRANULOCYTE % 63.1 % (42.2-75.2); HEMATOCRIT 37.1 % (42-52); MEAN CORPUSCULAR HGB 32.2 PG (27.0-31.0); MEAN CORPUSCULAR HGB CONC 33.4 G/DL (33.0-37.0); MEAN CORPUSCULAR VOLUME 96.2 FL (80.0-94.0); MEAN PLATELET VOLUME 7.5 FL (7.4-10.4); PLATELET COUNT 216 /CUMM (130-400); RBC DISTRIBUTION WIDTH 14.4 % (11.5-14.5); RED BLOOD CELL CT 3.86 /CUMM (4.70-6.10); WHITE BLOOD CELL COUNT 9.9 /CUMM (4.8-10.8)
[2017-11-17 22:15] VITALS: BP 126/70
--- NOTE | 2017-11-18 06:51 | PN- Housestaff ---
Christelle HARO,Christine 11/18/17 0650: Subjective Follow-up For: Presyncope Complaints: no complaints Tele-Events Since Last Visit: Patient had 8 beat run of V. tach. Atrial fibrillation heart rate 85 Subjective: Patient was seen and examined by me today at bedside. No overnight events. He offers no complaints. He denies dizziness, lightheadedness, chest pain, chest pressure, shortness of breath. Review of Systems Constitutional: Reports: no symptoms. Cardiovascular: Reports: no symptoms. Respiratory: Reports: no symptoms. Gastrointestinal: Reports: no symptoms. Genitourinary: Reports: no symptoms. Objective Last 24 Hrs of Vital Signs/I&O Vital Signs Date Time Temp Pulse Resp B/P B/P Pulse O2 O2 Flow FiO2 Mean Ox Delivery Rate 11/18 0916 82 118/64 11/18 0739 97.4 68 20 124/68 98 Room Air 11/18 0000 BIPAP 11/17 2215 98.8 75 20 126/70 95 11/17 2151 75 126/70 11/17 2053 97.0 71 20 130/60 97 Room Air 11/17 2024 96.6 79 18 138/77 96 Room Air 11/17 1916 98.0 86 16 141/77 97 Room Air 11/17 1639 96.7 80 18 130/63 98 Room Air 11/17 1500 98 Room Air 11/17 1420 98.6 69 18 116/74 99 Room Air Intake & Output 11/18 1600 11/18 0800 11/18 0000 Intake Total 175 120 Output Total Balance 175 120 Intake, IV 75 Intake, Oral 100 120 Patient 180 lb Weight Physical Exam General Appearance: Alert, Oriented X3, Cooperative, No Acute Distress Cardiovascular: Normal S1, Normal S2, No Murmurs, IRREGULAR Lungs: Clear to Auscultation, Normal Air Movement Abdomen: Normal Bowel Sounds, Soft, No Tenderness, No Hepatospenomegaly Neurological: Strength at 5/5 X4 Ext, Normal Tone, Sensation Intact Current Medications: Current Medications Sig/Janet Start time Last Medication Dose Route Stop Time Status Admin Acetaminophen 650 MG Q6P PRN 11/17 1814 AC PO Acetaminophen 1,000 MG Q6P PRN 11/17 181 AC IV Apixaban 5 MG BID 11/17 2200 AC 11/18 PO 0915 Aspirin Buffered 81 MG DAILY 11/18 1000 AC 11/18 PO 0915 Atorvastatin Calcium 80 MG 17011/18 1700 AC PO Cholecalciferol 1,000 IU DAILY 11/18 1000 AC 11/18 PO 0917 Cyanocobalamin 1,000 MCG DAILY 11/18 1000 AC 11/18 PO 0917 Digoxin 0.125 MG 1700 11/18 1700 AC PO Diltiazem HCl 360 MG DAILY 11/18 1000 AC 11/18 PO 0922 Furosemide 20 MG DAILY 11/18 1000 AC 11/18 PO 0916 Insulin Aspart 0 TIDAC 11/18 0800 AC SC Insulin Detemir 30 UNITS QAM 11/18 1000 AC 11/18 SC 0916 Insulin Detemir 7 UNITS QPM 11/17 2200 AC 11/17 SC 2151 Metoprolol Tartrate 100 MG BID 11/17 2200 AC 11/18 PO 0916 Omeprazole 40 MG DAILY AC 11/18 0700 AC 11/18 PO 0605 Polyethylene Glycol 17 GM DAILY PRN 11/17 1815 AC PO Sodium Chloride 1,000 ML .[id number] 11/17 1800 DC 11/18 IV 11/18 2038 0742 Last 24 Hrs of Lab/Ash Results Last 24 Hrs of Labs/Mics: Laboratory Tests 11/18/17 0700: Anion Gap 11, Estimated GFR > 60, BUN/Creatinine Ratio 26.3 H, Phosphorus 4.0, Magnesium 1.9 11/17/17 2030: Troponin I 0.04, CBC w Diff NO MAN DIFF REQ, RBC 3.86 L, MCV 96.2 H, MCH 32.2 H, RDW 14.4, MPV 7.5, Gran % 63.1, Lymphocytes % 22.4, Monocytes % 10.7 H, Eosinophils % 3.5, Basophils % 0.3, Absolute Granulocytes 6.2, Absolute Lymphocytes 2.2, Absolute Monocytes 1.1 H, Absolute Eosinophils 0.3, Absolute Basophils 0, PUBS MCHC 33.4 11/17/17 1430: Anion Gap 12, Estimated GFR 57 L, BUN/Creatinine Ratio 19.2, Glucose 218 H, Calcium 8.9, Magnesium 1.9, Total Bilirubin 0.7, AST 22, ALT 41, Alkaline Phosphatase 78, Troponin I 0.04, [id number] Pept 2830 H, Total Protein 6.3, Albumin 3.5, Globulin 2.8, Albumin/Globulin Ratio 1.3, PT 14.8 H, INR 1.41 H, APTT 32, CBC w Diff NO MAN DIFF REQ, RBC 3.81 L, MCV 94.5 H, MCH 32.4 H, RDW 14.1, MPV 7.7, Gran % 65.9, Lymphocytes % 20.6, Monocytes % 10.6 H, Eosinophils % 2.5, Basophils % 0.4, Absolute Granulocytes 6.9 H, Absolute Lymphocytes 2.1, Absolute Monocytes 1.1 H, Absolute Eosinophils 0.3, Absolute Basophils 0, PUBS MCHC 34.3, Digoxin 0.9 Assessment/Plan Assessment: 87-year-old male with past medical history of atrial fibrillation, congestive heart failure, aortic stenosis, coronary artery disease, myocardial infarction [ 3 weeks ago was admitted [facility] for 11 days and underwent cardiac cath], obstructive sleep apnea on BIPAP, obesity came to [place] ER with 3 episodes of dizziness since morning is being observed in telemetry for further evaluation and management. Problem list 1.presyncope under evaluation 2.Atrial fibrillation 3.Congestive heart failure 4.Coronary artery disease 5.Diabetes/hypertension/hyperlipidemia 6.Obstructive sleep apnea on BIPAP Assessment and plan 1. PreSyncope for evaluation Given the patient extensive cardiac history his syncope can be cardiogenic secondary due to his severe aortic stenosis. Orthostatics negative. Patient will be evaluated by cardiology today. Overnight patient had 8 beat run of V. tach. We will follow up with electrolytes and replace as needed. Patient has been evaluated in [facility] and was considered for possible TAVR, We will discuss with the heliotherapist. 2.Atrial fibrillation Patient is an atrial fibrillation rate controlled. He is on Cardizem and metoprolol. Given the history of syncope we will continue his Cardizem and his metoprolol for now. We will continue his Eliquis. 3. Congestive heart failure We'll continue his Lasix. 4. Diabetes, hypertension, hyperlipidemia We will start him on sliding scale NovoLog insulin, Accu-Chek, we will continue his atorvastatin, digoxin, omeprazole, Lasix 20 mg, aspirin. 5. Obstructive sleep apnea we will continue his BiPAP. Diet-heart regular diet Code-full code Problem List: 1. Pre-syncope Pain Ratin Pain Location: none Pain Goal: Remain pain free Pain Plan: tylenol Tomorrow's Labs & Rationales: bradley Thomas MD,An 11/18/17 1143: Attending MD Review Statement Attending Statement Attending MD Statement: examined this patient, discuss w/resident/PA/GRADER GREEN MEAT, agreed w/resident/PA/GRADER [employer]EN [employer]AT, discussed with family, reviewed EMR data (avail), discussed with nursing, discussed with case mgmt, amended to note Attending Assessment/Plan: Patient seen and examined. Resting comfortably and not in acute distress. Daughter is present at the bedside. He offers no complaints this morning. Denies chest pain or shortness of breath. Denies palpitations. On examination he has no jugular venous distention. Heart sounds are regular with a 3/6 systolic murmur. He does have bibasilar crepitus which is daughter reports chronic for the patient. Abdomen is soft and nontender he has no peripheral edema. Problems: 1. Multiple episodes of presyncope 2. Critical aortic stenosis 3. Coronary artery disease status post non-ST elevation VT. Recent cardiac cath showing nonflow limiting disease. 4. Atrial fibrillation on anticoagulation with Eliquis. Plan: -No other obvious etiology for his syncopal episode noted. Electrolytes are within normal limits. He was not hypoglycemic. He has no new medications on board. He has no orthostatic blood pressure changes. He does have a history of severe aortic stenosis with plans for TAVR. -Cardiology follow-up appreciated. The patient is medically stable to be discharged home to continue planning for TAVR by his cardiology service. -Patient was started on IV hydration overnight. I agree with recommendations to discontinue fluids and continue patient on his home regimen of Lasix. Monitor closely to avoid aggressive volume depletion in the setting of severe aortic stenosis. -If he remains clinically stable overnight he may be discharged home. -Mobilize patient as tolerated. -Anticipate discharge tomorrow.Repeat labs if clinically indicated.
[2017-11-18 07:39] VITALS: BP 124/68
--- NOTE | 2017-11-18 08:27 | PN- Student ---
Subjective Subjective: Germain is an 87 y male with a hx of CHF, afib, , CAD, SOFIYA, DM?, and a recent PR (3 weeks ago; requiring cath at [facility]) admitted to our service after 3 near syncopal episodes. Overnight, he appears to be doing well. He communicated that he slept well and had no difficulty breathing or chest pain or lightheadedness. Per nursing, he is ambulating under supervision and is getting sufficient Is and Os (I: 100 PO/75 IV; O: 175); however, considering he is able to take fluids PO, there is concern about running him on 75 NS and pushing him into CHF. Objective Objective: Orders Procedure Date/time Status Consistent Carbohydrate 2 11/18 B Active Lab Add-on Test 11/18 06 Active PHOSPHORUS 11/18 06 Active MAGNESIUM 11/18 599 Active BASIC ELECTROLYTES PLUS BUN&CR 11/18 599 Active Vital Signs 11/17 2123 Active Teach/Educate 11/17 2123 Active Pain Treatment and Response 11/17 2123 Active Nutritional Intake, Monitor 11/17 2123 Active Isolation 11/17 2123 Active Intake & Output 11/17 2123 Active Patient Care Conference 11/17 2123 Active Activity/Ambulation 11/17 2123 Active TROPONIN LEVEL 11/17 2030 Complete EKG 11/17 2030 Active CBC WITHOUT DIFFERENTIAL 11/17 1829 Complete PT Evaluate & Treat 11/17 1803 Active Pathway - chart 11/17 1803 Active House Staff 11/17 1803 Active Code Status 11/17 1803 Active Add-on Test (ER Only) 11/17 1723 Active Patient Data 11/17 1706 Active OXYGEN SETUP (GEN) 11/17 1649 Active Saline Lock 11/[address] in observation 11/17 1649 Active Vital Signs 11/17 1649 Active Activity/Ambulation 11/17 1649 Active Code Status 11/17 1649 Complete Add-on Test (ER Only) 11/17 1502 Active PARTIAL THROMBOPLASTIN TIME 11/17 1430 Complete PROTHROMBIN TIME 11/17 1430 Complete MAGNESIUM 11/17 1430 Complete DIGOXIN 11/17 1430 Complete B-TYPE NATRIURETIC PEP (BNP) 11/17 1430 Complete MISTAKE 11/17 1424 Complete Telemetry/Crankshaft Grinder 11/17 1424 Active TROPONIN LEVEL 11/17 1422 Complete COMPREHENSIVE METABOLIC PANEL 11/17 1422 Complete CBC WITHOUT DIFFERENTIAL 11/17 1422 Complete EKG 11/17 1409 Active VTE Mechanical Prophylaxis 11/17 UNK Active Vital Signs 11/17 UNK Complete MISTAKE 11/17 UNK Active Nursing Misc 11/17 UNK Active NIH Stroke Scale 11/17 UNK Active Intake & Output 11/17 UNK Active FingerStick- Glucose 11/17 UNK Active Vital Signs Date Time Temp Pulse Resp B/P B/P Pulse O2 O2 Flow FiO2 Mean Ox Delivery Rate 11/18 0739 97.4 68 20 124/68 98 Room Air 11/18 0000 BIPAP 11/17 2215 98.8 75 20 126/70 95 11/17 2151 75 126/70 11/17 2053 97.0 71 20 130/60 97 Room Air 11/17 2023 96.6 79 18 138/77 96 Room Air 11/17 1916 98.0 86 16 141/77 97 Room Air 11/17 1639 96.7 80 18 130/63 98 Room Air 11/17 1500 98 Room Air 11/17 1420 98.6 69 18 116/74 99 Room Air Last 24 Hours I&Os 11/18 1600 11/18 0800 11/18 0000 Intake Total 175 120 Output Total Balance 175 120 Intake, IV 75 Intake, Oral 100 120 Patient 180 lb Weight Laboratory Tests 11/18/17 0700: Sodium Pending, Potassium Pending, Chloride Pending, Carbon Dioxide Pending, Anion Gap Pending, BUN Pending, Creatinine Pending, BUN/Creatinine Ratio Pending , Phosphorus Pending, Magnesium Pending 11/17/17 2030: Troponin I 0.04, CBC w Diff NO MAN DIFF REQ, RBC 3.86 L, MCV 96.2 H, MCH 32.2 H, RDW 14.4, MPV 7.5, Gran % 63.1, Lymphocytes % 22.4, Monocytes % 10.7 H, Eosinophils % 3.5, Basophils % 0.3, Absolute Granulocytes 6.2, Absolute Lymphocytes 2.2, Absolute Monocytes 1.1 H, Absolute Eosinophils 0.3, Absolute Basophils 0, PUBS MCHC 33.4 11/17/17 1430: Anion Gap 12, Estimated GFR 57 L, BUN/Creatinine Ratio 19.2, Glucose 218 H, Calcium 8.9, Magnesium 1.9, Total Bilirubin 0.7, AST 22, ALT 41, Alkaline Phosphatase 78, Troponin I 0.04, Gpb-U-Lbgekxdyecg Pept 2830 H, Total Protein 6.3, Albumin 3.5, Globulin 2.8, Albumin/Globulin Ratio 1.3, PT 14.8 H, INR 1.41 H, APTT 32, CBC w Diff NO MAN DIFF REQ, RBC 3.81 L, MCV 94.5 H, MCH 32.4 H, RDW 14.1, MPV 7.7, Gran % 65.9, Lymphocytes % 20.6, Monocytes % 10.6 H, Eosinophils % 2.5, Basophils % 0.4, Absolute Granulocytes 6.9 H, Absolute Lymphocytes 2.1, Absolute Monocytes 1.1 H, Absolute Eosinophils 0.3, Absolute Basophils 0, PUBS MCHC 34.3, Digoxin 0.9 Orders Procedure Date/time Status Consistent Carbohydrate 2 11/18 B Active Lab Add-on Test 11/18 0600 Active PHOSPHORUS 11/18 0600 Active MAGNESIUM 11/18 0600 Active BASIC ELECTROLYTES PLUS BUN&CR 11/18 0600 Active Vital Signs 11/17 2123 Active Teach/Educate 11/17 2123 Active Pain Treatment and Response 11/17 2123 Active Nutritional Intake, Monitor 11/17 2123 Active Isolation 11/17 2123 Active Intake & Output 11/17 2123 Active Patient Care Conference 11/17 2123 Active Activity/Ambulation 11/17 2123 Active TROPONIN LEVEL 11/17 2030 Complete EKG 11/17 2030 Active CBC WITHOUT DIFFERENTIAL 11/17 1829 Complete PT Evaluate & Treat 11/17 1803 Active Pathway - chart 11/17 1803 Active House Staff 11/17 1803 Active Code Status 11/17 1803 Active Add-on Test (ER Only) 11/17 1723 Active Patient Data 11/17 1706 Active OXYGEN SETUP (GEN) 11/17 1649 Active Saline Lock 11/[address] in observation 11/17 1649 Active Vital Signs 11/17 1649 Active Activity/Ambulation 11/17 1649 Active Code Status 11/17 1649 Complete Add-on Test (ER Only) 11/17 1502 Active PARTIAL THROMBOPLASTIN TIME 11/17 1430 Complete PROTHROMBIN TIME 11/17 1430 Complete MAGNESIUM 11/17 1430 Complete DIGOXIN 11/17 1430 Complete B-TYPE NATRIURETIC PEP (BNP) 11/17 1430 Complete MISTAKE 11/17 1424 Complete Telemetry/Crankshaft Grinder 11/17 1424 Active TROPONIN LEVEL 11/17 1422 Complete COMPREHENSIVE METABOLIC PANEL 11/17 1422 Complete CBC WITHOUT DIFFERENTIAL 11/17 1422 Complete EKG 11/17 1409 Active VTE Mechanical Prophylaxis 11/17 UNK Active Vital Signs 11/17 UNK Complete MISTAKE 11/17 UNK Active Nursing Misc 11/17 UNK Active NIH Stroke Scale 11/17 UNK Active Intake & Output 11/17 UNK Active FingerStick- Glucose 11/17 UNK Active Physical Examination: General: Patient AOx3, cooperative and follows direction well given language barrier. Lungs: CTAB, no crackles appreciated dependently Heart: RR, no rubs or gallops. 3/6 holosystolic murmur noted over the left second intercostal space MSK: Chest non TTP b/l Abdomen: soft, protuberant, non-tender to palpation Le+ pitting edema noted b/l with signs of venous stasis dematitis Neuro: Upper extremity and plantar strength 5/5 b/l. Smile symmetrical, EOM intact, able to wiggle toes b/l Assessment/Plan Plan: Assessment: 87y portugese-speaking male with a hx of afib, CAD, SOFIYA, , CHF, and recent PR (3 weeks ago) who presented to the ED and was subsequently admitted 2/2 3 near-syncopal episodes whose cxr showed stable cardiomegaly, labs are significant for pro-BNP 2830, H&H 12.4/36.0, GFR 57, glucose 218 and examination was significant for 3/6 holosystolic murmur at the left second intercostal space and 1+ LE pitting edema b/l. 1) Near-syncope Plan: Consult cardiology Continue telemetry Continue serial EKGs Continue NIH SS and neuro checks F/u troponin levels Continue cardiology medications 2) Uncontrolled DM/HTN/HL Plan: Continue sliding scale novolog w/ accu-check Continue atorvostatin Continue Digoxin, lasix, ASA 3) CHF Plan: D/c fluids because of increasing PO intake and risk of pushing patient into HF Continue Digoxin, lasix, ASA Continue strict Is and Os 4) SOFIYA Plan: Cont BiPap 5) Afib Plan: Continue eloquis, cardizem, metoprolol 6) DVT ppx Plan: Continue ambulating Diet: Full heart healthy diet Discharge planning: Pending cardiology consult and proper OP f/u
--- NOTE | 2017-11-18 08:41 | Patient Discharge Instructions ---
Discharge Instructions General Discharge Information You were seen/treated for: presyncope Watch for these problems: In case of chest pain, chest pressure, abd pain, dizziness, nearest emergency room. Special Instructions: Please follow-up with your primary care provider within 1-2 weeks of discharge and let them know about your recent admission at [facility]. Please follow-up with your costing analyst within 1-2 weeks of discharge and let them know about your recent admission at [facility]. Please follow-up with Dr. Mitra blackwell regarding further management of aortic stenosis. Please take the medication as prescribed. Diet Continue normal diet: No Recommended Diet: Heart Healthy Activity Full Activity/No Limits: No Activity Self Limited: Yes Acute Coronary Syndrome Inclusion Criteria At DC or during hospital stay patient has or had the following: ACS DIAGNOSIS No Discharge Core Measures Meds if any: Prescribed or Continued at Discharge Meds if any: NOT Prescribed or Continued at Discharge Congestive Heart Failure Inclusion Criteria At DC or during hospital stay patient has or had the following: CHF DIAGNOSIS No Discharge Core Measures Meds if any: Prescribed or Continued at Discharge Meds if any: NOT Prescribed or Continued at Discharge Cerebrovascular accident Inclusion Criteria At DC or during hospital stay patient has or had the following: CVA/TIA Diagnosis No Discharge Core Measures Meds if any: Prescribed or Continued at Discharge Meds if any: NOT Prescribed or Continued at Discharge Venous thromboembolism Inclusion Criteria VTE Diagnosis No VTE Type NONE VTE Confirmed by (Test) NONE Discharge Core Measures - Per Current guidelines, there needs to be overlap - treatment for the first 5 days of Warfarin therapy. - If discharged on Warfarin prior to 5 days of - overlap therapy, the patient will need to be - assessed for post discharge needs including - *Post discharge parental anticoagulation - *Warfarin and/or parental anticoagulation education - *Follow up date to check INR post discharge At least 5 days overlap therapy as Inpatient No Meds if any: Prescribed or Continued at Discharge Note: Overlap Therapy is Warfarin and Anticoagulant Meds if any: NOT Prescribed or Continued at Discharge
--- NOTE | 2017-11-18 11:29 | Cons- Cardiology ---
General Information and HPI Consulting Request Date of Consult: 11/18/17 Requested By: William HARO,An Reason for Consult: Near-syncope history of aortic stenosis Source of Information: patient, family Exam Limitations: no limitations History of Present Illness: The patient is an 87-year-old male followed by Dr. Barros with a history of coronary artery disease status post non-ST elevation myocardial infarction with nonflow limiting coronary artery disease by cath 10/25/2017, atrial fibrillation on Eliquis, critical aortic stenosis being evaluated for TAVR, who now presents with dizziness and near syncope. His daughter is at the bedside to assist in providing history. She stated that he had 3 episodes of dizziness without syncope. He did not fall. The episodes were brief in duration without any other associated symptoms and she became concerned and therefore brought him to the emergency room for evaluation. As noted above his most recent catheterization was performed 10/25/2017 demonstrated nonflow limiting coronary disease with an occluded right PDA not amenable to PCI, normal EF, and severe aortic stenosis. His most recent transesophageal echocardiogram was performed 11/02/2017 demonstrating an EF of 45-50%, dilated left atrium with "smoke" severe aortic stenosis with a valve area of 0.7-0.88, along with a sinus of Valsalva aneurysm. Due to smoke noted in his atrium he was not cardioverted. Holter monitor performed 11/12/2017 demonstrated atrial fibrillation with controlled ventricular response The patient states he currently feels well but his daughter states that he never complains. He denies chest pain shortness of breath or further episodes of dizziness. Allergies/Medications Allergies: Coded Allergies: NO KNOWN ALLERGIES (12/25/16) Home Med List: Apixaban (Eliquis) 5 MG TABLET 1 TAB PO BID BLOOD THINNER (FOR A FIB) ( Reported) Aspirin (Ecotrin*) 81 MG TABLET.DR 1 TAB PO DAILY HEART HEALTH (Reported) Atorvastatin Calcium 80 MG TABLET 1 TAB PO DAILY HEART HEALTH, HLD (Reported) Cephalexin (Keflex) 500 MG CAPSULE 1 CAP PO TID cellulitis Cholecalciferol (Vitamin D3) 1,000 UNIT TABLET 1 TAB PO DAILY VITAMIN SUPPORT (Reported) Cyanocobalamin (Vitamin B-12) 1,000 MCG TABLET 1 TAB PO DAILY VITAMIN SUPPORT (Reported) Digoxin 125 MCG TABLET 1 TAB PO 1700 HEART (Reported) Diltiazem HCl (Diltiazem 24HR ER) 360 MG CAP.ER.24H 1 CAP PO DAILY HEART RHYTHM (Reported) Fluticasone Propionate 50 MCG/ACTUATION SPRAY.SUSP 2 SPRAY NASB DAILY CONGESTION (Reported) Furosemide 20 MG TABLET 1 TAB PO DAILY HEART, EDEMA (Reported) Glimepiride (Amaryl) 2 MG TABLET 1 TAB PO DAILY DIABETES (Reported) Glucosamine HCl/Chondr Hartman A Na (Osteo Bi-Flex Caplet) 250 MG-200 MG TABLET 1 TAB PO DAILY SUPPLEMENT (Reported) Insulin Aspart, Recombinant (Novolog Flexpen) (Unknown Strength) INSULN.PEN ( Unknown Dose) SC DAILY PRN DM (Reported) Insulin Detemir (Levemir) 100 UNIT/ML VIAL 7 U SC QPM DIABETES (Reported) Insulin Detemir (Levemir Flextouch) 100 UNIT/ML (3 ML) INSULN.PEN DM (Reported) Metoprolol Tartrate 100 MG TABLET 1 TAB PO BID HEART (Reported) Omeprazole 40 MG CAPSULE.DR 1 CAP PO DAILY GERD (Reported) Ubidecarenone (Co Q-10) 100 MG CAPSULE 1 CAP PO DAILY SUPPLEMENT (Reported) Current Medications: Current Medications Sig/Janet Start time Last Medication Dose Route Stop Time Status Admin Acetaminophen 650 MG Q6P PRN 11/17 1815 AC PO Acetaminophen 1,000 MG Q6P PRN 11/17 1815 AC IV Apixaban 5 MG BID 11/17 2200 AC 11/18 PO 0915 Aspirin Buffered 81 MG DAILY 11/18 1000 AC 11/18 PO 0915 Atorvastatin Calcium 80 MG 1700 11/18 1700 AC PO Cholecalciferol 1,000 IU DAILY 11/18 1000 AC 11/18 PO 0917 Cyanocobalamin 1,000 MCG DAILY 11/18 1000 AC 11/18 PO 0917 Digoxin 0.125 MG 1700 11/18 1700 AC PO Diltiazem HCl 360 MG DAILY 11/18 1000 AC 11/18 PO 0922 Furosemide 20 MG DAILY 11/18 1000 AC 11/18 PO 0916 Insulin Aspart 0 TIDAC 11/18 0800 AC SC Insulin Detemir 30 UNITS QAM 11/18 1000 AC 11/18 SC 0916 Insulin Detemir 7 UNITS QPM 11/17 2200 AC 11/17 SC 2151 Metoprolol Tartrate 100 MG BID 11/17 2200 AC 11/18 PO 0916 Omeprazole 40 MG DAILY AC 11/18 0700 AC 11/18 PO 0605 Polyethylene Glycol 17 GM DAILY PRN 11/17 1815 AC PO Sodium Chloride 1,000 ML .[id number] 11/17 1800 DC 11/18 IV 11/18 2038 0742 Review of Systems Review of Systems: Eyes no blurred or double vision Ears no deafness or ringing Nose and throat no recurrent sinusitis Lungs per history of present illness Heart per history of present illness Abdomen no nausea vomiting Musculoskeletal occasional muscle and joint pains Psych no anxiety or depression Neuro without recurrent headache or seizures Endocrine no heat or cold intolerance Past History Travel History Traveled to [place] past 21 day No Medical History Blood Transfusion Hx: No Neurological: NONE EENT: NONE Cardiovascular: AFIB, CHF, hypertension, STEMI Respiratory: obstructive sleep apnea Gastrointestinal: NONE Hepatic: NONE Renal: NONE Musculoskeletal: NONE Psychiatric: NONE Endocrine: DM Blood Disorders: NONE Cancer(s): NONE SALES PRODUCT SPECIALIST/Reproductive: NONE Surgical History Surgical History: non-contributory Psychosocial History Where Do You Live? Home Who Do You Live With? spouse Services at Home: None Primary Language: Telugu Smoking Status: Never Smoked ETOH Use: denies use Illicit Drug Use: denies illicit drug use Functional Ability ADLs Independent: dressing, eating, toileting, bathing. Ambulation: independent IADLs Independent: shopping, housework, finances, food prep, telephone, transportation , medication admin. Exam & Diagnostic Data Vital Signs and I&O Vital Signs Date Time Temp Pulse Resp B/P B/P Pulse O2 O2 Flow FiO2 Mean Ox Delivery Rate 11/18 0916 82 118/64 11/18 0739 97.4 68 20 124/68 98 Room Air 11/18 0000 BIPAP 11/17 2214 98.8 75 20 126/70 95 11/17 2151 75 126/70 11/17 2052 97.0 71 20 130/60 97 Room Air 11/17 2023 96.6 79 18 138/77 96 Room Air 11/17 1916 98.0 86 16 141/77 97 Room Air 11/17 1639 96.7 80 18 130/63 98 Room Air 11/17 1500 98 Room Air 11/17 1420 98.6 69 18 116/74 99 Room Air Intake & Output 11/18 1600 11/18 0800 11/18 0000 11/17 1600 11/17 0800 11/17 0000 Intake Total 175 120 Output Total Balance 175 120 Intake, IV 75 Intake, Oral 100 120 Patient 180 lb 180 lb Weight Weight Reported by Patient Measurement Method Physical Exam: Patient is a well-developed well-nourished male appearing in no acute distress HEENT is unremarkable Neck is supple there is no JVD Lungs bibasilar Rales Heart irregular rhythm S1 and S2 are normal no gallops or rubs 3 to 4/6 systolic ejection murmur at right upper sternal border Abdomen bowel sounds positive Extremities 2+ edema Labs/Ash Results: Laboratory Tests 11/18 11/17 0700 2030 Chemistry Sodium (137 - 145 mmol/L) 142 Potassium (3.5 - 5.1 mmol/L) 4.2 Chloride (98 - 107 mmol/L) 105 Carbon Dioxide (22 - 30 mmol/L) 27 Anion Gap (5 - 16) 11 BUN (9 - 20 mg/dL) 21 H Creatinine (0.7 - 1.2 mg/dL) 0.8 Estimated GFR (>60 ml/min) > 60 BUN/Creatinine Ratio (7 - 25 %) 26.3 H Phosphorus (2.5 - 4.5 mg/dL) 4.0 Magnesium (1.6 - 2.3 mg/dL) 1.9 Troponin I (<0.11 ng/ml) 0.04 Hematology CBC w Diff NO MAN DIFF REQ WBC (4.8 - 10.8 /CUMM) 9.9 RBC (4.70 - 6.10 /CUMM) 3.86 L Hgb (14.0 - 18.0 G/DL) 12.4 L Hct (42 - 52 %) 37.1 L MCV (80.0 - 94.0 FL) 96.2 H MCH (27.0 - 31.0 PG) 32.2 H RDW (11.5 - 14.5 %) 14.4 Plt Count (130 - 400 /CUMM) 216 MPV (7.4 - 10.4 FL) 7.5 Gran % (42.2 - 75.2 %) 63.1 Lymphocytes % (20.5 - 51.1 %) 22.4 Monocytes % (1.7 - 9.3 %) 10.7 H Eosinophils % (0 - 5 %) 3.5 Basophils % (0.0 - 2.0 %) 0.3 Absolute Granulocytes (1.4 - 6.5 /CUMM) 6.2 Absolute Lymphocytes (1.2 - 3.4 /CUMM) 2.2 Absolute Monocytes (0.10 - 0.60 /CUMM) 1.1 H Absolute Eosinophils (0.0 - 0.7 /CUMM) 0.3 Absolute Basophils (0.0 - 0.2 /CUMM) 0 PUBS MCHC (33.0 - 37.0 G/DL) 33.4 11/17 1430 Chemistry Sodium (137 - 145 mmol/L) 140 Potassium (3.5 - 5.1 mmol/L) 4.7 Chloride (98 - 107 mmol/L) 101 Carbon Dioxide (22 - 30 mmol/L) 26 Anion Gap (5 - 16) 12 BUN (9 - 20 mg/dL) 23 H Creatinine (0.7 - 1.2 mg/dL) 1.2 Estimated GFR (>60 ml/min) 57 L BUN/Creatinine Ratio (7 - 25 %) 19.2 Glucose (65 - 99 mg/dL) 218 H Calcium (8.4 - 10.2 mg/dL) 8.9 Magnesium (1.6 - 2.3 mg/dL) 1.9 Total Bilirubin (0.2 - 1.3 mg/dL) 0.7 AST (17 - 59 U/L) 22 ALT (21 - 72 U/L) 41 Alkaline Phosphatase (< 127 U/L) 78 Troponin I (<0.11 ng/ml) 0.04 Hvk-[id number]-Vumrblzsmvx Pept (<125 pg/mL) 2830 H Total Protein (6.3 - 8.2 g/dL) 6.3 Albumin (3.5 - 5.0 g/dL) 3.5 Globulin (1.9 - 4.2 gm/dL) 2.8 Albumin/Globulin Ratio (1.1 - 2.2 %) 1.3 Coagulation PT (9.4 - 12.5 SEC) 14.8 H INR (0.90 - 1.17) 1.41 H APTT (25 - 37 SEC) 32 Hematology CBC w Diff NO MAN DIFF REQ WBC (4.8 - 10.8 /CUMM) 10.4 RBC (4.70 - 6.10 /CUMM) 3.81 L Hgb (14.0 - 18.0 G/DL) 12.4 L Hct (42 - 52 %) 36.0 L MCV (80.0 - 94.0 FL) 94.5 H MCH (27.0 - 31.0 PG) 32.4 H RDW (11.5 - 14.5 %) 14.1 Plt Count (130 - 400 /CUMM) 236 MPV (7.4 - 10.4 FL) 7.7 Gran % (42.2 - 75.2 %) 65.9 Lymphocytes % (20.5 - 51.1 %) 20.6 Monocytes % (1.7 - 9.3 %) 10.6 H Eosinophils % (0 - 5 %) 2.5 Basophils % (0.0 - 2.0 %) 0.4 Absolute Granulocytes (1.4 - 6.5 /CUMM) 6.9 H Absolute Lymphocytes (1.2 - 3.4 /CUMM) 2.1 Absolute Monocytes (0.10 - 0.60 /CUMM) 1.1 H Absolute Eosinophils (0.0 - 0.7 /CUMM) 0.3 Absolute Basophils (0.0 - 0.2 /CUMM) 0 PUBS MCHC (33.0 - 37.0 G/DL) 34.3 Toxicology Digoxin (0.8 - 2.0 ng/mL) 0.9 Diagnostic Data EKG Results Atrial fibrillation Telemetry personally reviewed atrial fibrillation with aberrancy CXR Results IMPRESSION: Stable cardiomegaly with stable mild interstitial prominence present throughout both lungs likely indicative of mild vascular congestion. Mild nonspecific bibasilar airspace disease. Assessment/Plan Assessment/Plan 1. Nonflow limiting coronary disease by catheterization summary 2016 2. Critical aortic stenosis being evaluated for TAVR 3. Near syncope possibly secondary to aortic stenosis 4. Atrial fibrillation on Eliquis 5. Hypertension 6. Evidence of fluid overload on physical examination most likely secondary to IV hydration. Recommendation 1. I would recommend administering Lasix 20 mg IV given his rales on physical examination along with edema 2. Would discontinue IV fluids 3. Would ambulate 4. Patient does have an outpatient CT scheduled in preparation for TAVR 5. I discussed the plan for an outpatient workup along with the risks of sudden cardiac with aortic stenosis and the daughter understands. 6. If patient remains stable and asymptomatic can consider discharge with close outpatient follow-up with Dr. Barros Thank you for allowing [facility] to participate in the care of your patient. Consult Acknowledgment - Thank you for your consult request.
[2017-11-18 16:10] VITALS: BP 118/58
[2017-11-18 23:00] VITALS: BP 136/76
--- NOTE | 2017-11-19 06:37 | PN-Observation ---
Christelle HARO,[facility] 11/19/17 0637: Observation Note Observation Note _ I have personally examined ROLLY JOSE. him disposition is uncertain at this time. Before a determination can be made, he requires continued observation for the following reasons [presyncope]. Assessment/Plan Assessment: 87-year-old male with past medical history of atrial fibrillation, congestive heart failure, aortic stenosis, coronary artery disease, myocardial infarction [ 3 weeks ago was admitted [facility] for 11 days and underwent cardiac cath], obstructive sleep apnea on BIPAP, obesity came to [facility] with 3 episodes of dizziness since morning is being observed in telemetry for further evaluation and management. Problem list 1.presyncope 2.Atrial fibrillation 3.Congestive heart failure 4.Coronary artery disease 5.Diabetes/hypertension/hyperlipidemia 6.Obstructive sleep apnea on BIPAP Assessment and plan 1. PreSyncope Given the patient extensive cardiac history his syncope can be cardiogenic secondary due to his severe aortic stenosis. Orthostatics negative. No overnight events. Patient will follow Dr. Mitra blackwell as an outpatient for possible TAVR. 2.Atrial fibrillation Patient is an atrial fibrillation rate controlled. He is on Cardizem and metoprolol. Given the history of syncope we will continue his Cardizem and his metoprolol. We will continue his Eliquis. 3. Congestive heart failure We'll continue his Lasix 20 MG 4. Diabetes, hypertension, hyperlipidemia Patient is on sliding scale NovoLog insulin and we will continue his atorvastatin, digoxin, omeprazole, Lasix 20 mg, aspirin. 5. Obstructive sleep apnea we will continue his BiPAP. Diet-heart regular diet Code-full code Plan-discharged home with follow-up with cardiology. Problem List: 1. Pre-syncope DVT/Prophylaxis: pharmacological Discharge Plan Discharge Disposition: home If Discharged Today/In 24 Hrs: CMR done Subjective Follow-up For: Presyncope Complaints: no complaints Tele-Events Since Last Visit: Heart rate 70 sinus rhythm. Subjective: Patient was seen and examined by me at bedside. No overnight events. He offers no complaints. He denies chest pain, chest pressure, nausea, vomiting, fever, chills, decreased urine output. Review of Systems Constitutional: Reports: no symptoms. Cardiovascular: Reports: no symptoms. Respiratory: Reports: no symptoms. Gastrointestinal: Reports: no symptoms. Genitourinary: Reports: no symptoms. Musculoskeletal: Reports: no symptoms. Skin: Reports: no symptoms. Objective Last 24 Hrs of Vital Signs/I&O Vital Signs Date Time Temp Pulse Resp B/P B/P Pulse O2 O2 Flow FiO2 Mean Ox Delivery Rate 11/19 0911 90 122/62 11/19 0647 98.2 65 18 122/62 96 CPAP 11/18 2300 98.1 68 16 136/76 96 Room Air 11/18 2115 136/76 11/18 1640 20 118/58 11/18 1610 98.7 20 20 11858 97 Intake & Output 11/19 1600 11/19 0800 11/19 0000 Intake Total 260 280 Output Total 500 Balance 260 -220 Intake, Oral 260 280 Output, Urine 500 Physical Exam General Appearance: Alert, Oriented X3, Cooperative, No Acute Distress Neck: Supple, No JVD Cardiovascular: Regular Rate, Normal S1, Normal S2, No Murmurs Lungs: Normal Air Movement Abdomen: Normal Bowel Sounds, Soft, No Tenderness, No Hepatospenomegaly Neurological: Normal Speech, Strength at 5/5 X4 Ext, Normal Tone, Sensation Intact Extremities: No Edema Current Medications: Current Medications Sig/Janet Start time Last Medication Dose Route Stop Time Status Admin Acetaminophen 650 MG Q6P PRN 11/17 1814 AC PO Acetaminophen 1,000 MG Q6P PRN 11/17 181 AC IV Apixaban 5 MG BID 11/17 2200 AC 11/19 PO 0911 Aspirin Buffered 81 MG DAILY 11/18 1000 AC 11/19 PO 0911 Atorvastatin Calcium 80 MG 1700 11/18 1700 AC 11/18 PO 1640 Cholecalciferol 1,000 IU DAILY 11/18 1000 AC 11/19 PO 0911 Cyanocobalamin 1,000 MCG DAILY 11/18 1000 AC 11/19 PO 0911 Digoxin 0.125 MG 1700 11/18 1700 AC 11/18 PO 1640 Diltiazem HCl 360 MG DAILY 11/18 1000 AC 11/19 PO 0912 Furosemide 20 MG DAILY 11/19 1000 AC 11/19 IV 0909 Furosemide 40 MG .STK-MED ONE 11/18 1343 DC IV 11/18 1344 Furosemide 20 MG ONCE ONE 11/18 1330 DC 11/18 IV 11/18 1331 1352 Furosemide 20 MG DAILY 11/18 1000 DC 11/18 PO 0916 Insulin Aspart 0 TIDAC 11/18 0800 AC 11/18 SC 1640 Insulin Detemir 30 UNITS QAM 11/18 1000 AC 11/19 SC 0910 Insulin Detemir 7 UNITS QPM 11/17 2200 AC 11/18 SC 2116 Metoprolol Tartrate 100 MG BID 11/17 2200 AC 11/19 PO 0911 Omeprazole 40 MG DAILY AC 11/18 0700 AC 11/19 PO 0640 Polyethylene Glycol 17 GM DAILY PRN 11/17 1815 AC PO Last 24 Hrs of Labs/Mics: Laboratory Tests 11/19/17 0625: Anion Gap 11, Estimated GFR > 60, BUN/Creatinine Ratio 28.9 H William HARO,An 11/19/17 1337: Observation Note Observation Note _ Patient seen and examined. Resting comfortably and not in any acute distress. No issues overnight reported by nursing staff. He is alert and not agitated. He remains hemodynamically stable. On examination he had mild crackles in the left lung base. Abdomen is soft and nontender. He has trace peripheral edema bilaterally. Case discussed with the cardiology service. Recommendations are to avoid overdiuresis given his critical aortic stenosis. He will be discharged home on the same regimen of Lasix with recommendations to follow-up with the cardiology service for further planning of his aortic valve surgery. He is likely to have a further episodes of syncope/near syncope pending completion of his valve surgery.
[2017-11-19 06:47] VITALS: BP 122/62
[2017-11-19 09:11] VITALS: BP 122/62
[2017-11-19] MEDS ORDERED: NOVOLOG FL100 UNIT/1 SC ×3 (10:07→10:57)
--- NOTE | 2017-11-19 10:56 | PN- Student ---
Subjective Subjective: 87y portugese-speaking male with a chronic history of atrial fibrillation, CHF, , CAD, SOFIYA, obesity, and recent CA was admitted to our service on 11/18/17 secondary to 3 episodes of near syncope without falling. Overnight, patient states he is well; however, given language barrier I question his understanding. Nursing reports no events. Patient is mobilizing and has good I/O. He states no CP, abdominal pain, or leg pain and states his motor functioning is intact. Objective Objective: Physical Examination: General: AOx3, cooperative, appears stated age. Some difficulty with answering questions due to language barrier. Lungs: Mild crackles noted dependently Heart: 3/6 crescendo-decresendo murmur noted over the left upper sternal border Abdomen: Soft, protuberant, non-tender Extremeties: 2+ edema b/l, venous stasis dermatitis noticed b/l Cardiology consult: Recommendations to continue lasix 20mg, d/c IVF, encourage ambulation, and schedule TAVR appt. Results Results: Laboratory Tests 11/19/17 0625: Anion Gap 11, Estimated GFR > 60, BUN/Creatinine Ratio 28.9 H 11/18/17 0700: Anion Gap 11, Estimated GFR > 60, BUN/Creatinine Ratio 26.3 H, Phosphorus 4.0, Magnesium 1.9 11/17/17 2030: Troponin I 0.04, CBC w Diff NO MAN DIFF REQ, RBC 3.86 L, MCV 96.2 H, MCH 32.2 H, RDW 14.4, MPV 7.5, Gran % 63.1, Lymphocytes % 22.4, Monocytes % 10.7 H, Eosinophils % 3.5, Basophils % 0.3, Absolute Granulocytes 6.2, Absolute Lymphocytes 2.2, Absolute Monocytes 1.1 H, Absolute Eosinophils 0.3, Absolute Basophils 0, PUBS MCHC 33.4 11/17/17 1430: Anion Gap 12, Estimated GFR 57 L, BUN/Creatinine Ratio 19.2, Glucose 218 H, Calcium 8.9, Magnesium 1.9, Total Bilirubin 0.7, AST 22, ALT 41, Alkaline Phosphatase 78, Troponin I 0.04, Pzd-[id number] Pept 2830 H, Total Protein 6.3, Albumin 3.5, Globulin 2.8, Albumin/Globulin Ratio 1.3, PT 14.8 H, INR 1.41 H, APTT 32, CBC w Diff NO MAN DIFF REQ, RBC 3.81 L, MCV 94.5 H, MCH 32.4 H, RDW 14.1, MPV 7.7, Gran % 65.9, Lymphocytes % 20.6, Monocytes % 10.6 H, Eosinophils % 2.5, Basophils % 0.4, Absolute Granulocytes 6.9 H, Absolute Lymphocytes 2.1, Absolute Monocytes 1.1 H, Absolute Eosinophils 0.3, Absolute Basophils 0, PUBS MCHC 34.3, Digoxin 0.9 Assessment/Plan Assessment: 87y portugese-speaking male with a hx of CHF, CAD, Afib, , SOFIYA, obesity, and recent CA sp catheterization w/o stenting who was admitted to our service after 3 episodes of near-syncope whose examination is significant for mild crackles b/ l and lower extremity edema w/ stasis dermatitis noted b/l. Labs are significant for glucose 150, BUN/Cr 28.9, AND pro-BNP of 2830. Patients profile is consistent with cardiogenic near-syncope secondary to severe aortic stenosis. Discharge plans: F/u PCP regarding recent hospitalization F/u with net ui developer (Dr. Barros) regarding TAVR appt. 1) Pre-syncope: Likely cardiogenic 2/2 severe F/u with net ui developer for TAVR appt 2) Atrial fibrillation Cont rate control with diltiazem and metoprolol Cont eliquis 3) CHF D/c on PO lasix 40mg PO qd 4) DM/HTN/HL D/c on PO metformin 1000 mg PO qpm D/c on atorvostatin, digoxin, omeprazole, lasix, ASA 5) SOFIYA Cont BiPap
== END 2017-11-19 12:48 | disposition home health service (06) ==
LOC: ERH 13:44 → ERHI 16:49 → 1NO 16:49 → ENRESERV 19:50 → ENTRNSPT 20:47 → EDTRNSPTSTS 20:48 → 1NO 21:09 → CMPTRNSPT 21:12 → 1NO 11-18 10:26
PROVIDERS: Emergency Medicine; Physician Assistant Medical; Student in an Organized Health Care Education/Training Program
DX: R55 Syncope and collapse (principal); I48.91 Unspecified atrial fibrillation; Z79.01 Long term (current) use of anticoagulants; I11.0 Hypertensive heart disease with heart failure; I50.9 Heart failure, unspecified; E11.9 Type 2 diabetes mellitus without complications; Z79.4 Long term (current) use of insulin; E78.5 Hyperlipidemia, unspecified; G47.33 Obstructive sleep apnea (adult) (pediatric); Z79.82 Long term (current) use of aspirin
CPT/HCPCS: 36415; 71045; 82436; 93005; 93010; 96372; 96374; 96376; G0378; J1940; J3490